=== PATIENT | male | born 1965 | race Caucasian/White ===

== ENCOUNTER → 2020-07-08 | Outpatient (CLI) | payer MEDICARE, OTHER ==
[~2020-07-08] MED LIST: CEFUROXIME500 MG PO
[2020-07-08 11:09] LABS: HEMOGLOBIN 16.3 gm/dl (14.0-17.5); RED BLOOD COUNT 5.64 M/UL (4.20-5.50); WHITE BLOOD COUNT 7.8 K/UL (4.5-11.0)
[2020-07-08 11:40] LABS: BUN/CREATININE RATIO 19 (0-10)
== END ==
LOC: CT 06-23 09:30
PROVIDERS: Internal Medicine Hematology & Oncology
DX: C91.10 Chronic lymphocytic leukemia of B-cell type not having achieved remission (principal); D83.9 Common variable immunodeficiency, unspecified; Z01.89 Encounter for other specified special examinations
CPT/HCPCS: 36415; 71260; 80053; 85027; Q9967